=== PATIENT | female | born 1995 | race Caucasian/White ===

== ENCOUNTER → 2017-04-10 | Emergency (ER) | payer OTHER ==
[~2017-04-10] VITALS: Ht 157.5 cm; Wt 54.4 kg
[~2017-04-10] MED LIST: CIPRO500 MG PO; PEPCID40 MG PO; ZOFRAN4 MG PO
== END | disposition home or self-care (01) ==
LOC: ER 20:21
DX: K52.89 Other specified noninfective gastroenteritis and colitis (principal)

== ENCOUNTER 2017-10-08 22:44 | Emergency (ER) | payer OTHER ==
[~2017-10-08] VITALS: Ht 157.5 cm; Wt 54.4 kg
[2017-10-09] MEDS ORDERED: BUDESONIDE0.5 MG/2 M IH (05:23)
[2017-10-09] MEDS ORDERED: MUCINEX DM ER1 EAC1 PO (05:23)
[2017-10-09] MEDS ORDERED: ZITHROMAX500 MG PO (05:23)
[2017-10-09] MEDS ORDERED: IPRAT-ALBUT 0.5-3 ML IH (05:23)
[2017-10-09] MEDS ORDERED: PROMETH-CODEIN 65 ML PO (05:23)
[2017-10-09] MEDS ORDERED: MEDROLPACK PO (05:23)
== END 2017-10-09 05:55 | disposition home or self-care (01) ==
LOC: ER 22:44
DX: J06.9 Acute upper respiratory infection, unspecified (principal)

== ENCOUNTER 2021-07-04 19:29 | Emergency (ER) | payer OTHER ==
[~2021-07-04] VITALS: Ht 157.5 cm; Wt 52.2 kg
[~2021-07-04 19:29] MED LIST changes: +BUDESONIDE0.5 MG/2 M IH; +IPRAT-ALBUT 0.5-3 ML IH; +MEDROLPACK PO; +MUCINEX DM ER1 EAC1 PO; +PROMETH-CODEIN 65 ML PO; +ZITHROMAX500 MG PO
[2021-07-04] MEDS ORDERED: NAPROXEN500 MG PO (20:22)
== END 2021-07-04 20:32 | disposition home or self-care (01) ==
LOC: ER 19:29
DX: S09.90XA Unspecified injury of head, initial encounter (principal); W22.09XA Striking against other stationary object, initial encounter; Y93.9 Activity, unspecified; Y92.010 Kitchen of single-family (private) house as the place of occurrence of the external cause